=== PATIENT | female | born 1980 | race Caucasian/White ===

== ENCOUNTER 2018-07-03 11:12 | Inpatient (IN) | payer OTHER ==
[~2018-07-03] VITALS: Ht 160 cm; Wt 72.7 kg
[2018-07-03 11:30] VITALS: BP 141/103
[2018-07-03] MEDS ORDERED: PREN-3 PO (11:36)
[2018-07-03 12:02] LABS: MICROSCOPIC AUTO
[2018-07-03 12:06] LABS: BASOPHILS # (AUTO) 0.05 x10^3/uL (0-0.1); BASOPHILS % (AUTO) 0 % (0-1); EOSINOPHILS % (AUTO) 1 % (1-7); LYMPHOCYTES # (AUTO) 2.92 x10^3/uL (1-3.4); LYMPHOCYTES % (AUTO) 21 % (22-44); MD NO; MEAN CORPUSCULAR HGB CONC 35.1 g/dL (32.4-35.8); MEAN CORPUSCULAR VOLUME 91.1 fL (80-100); MEAN PLATELET VOLUME 8.5 fL (7.4-10.4); MONOCYTES # (AUTO) 0.83 x10^3/uL (0.2-0.8); MONOCYTES % (AUTO) 6 % (2-9); NEUTROPHILS # (AUTO) 10.15 x10^3/uL (1.8-6.8); NEUTROPHILS % (AUTO) 72 % (42-75); PLATELET COUNT 250 x10^3/uL (130-400); RED BLOOD COUNT 4.46 x10^6/uL (3.82-5.3); RED CELL DISTRIBUTION WIDTH 13.3 % (9.6-15.2)
[2018-07-03 12:12] LABS: CREATININE,URINE RANDOM 16.8 mg/dL
[2018-07-03 12:17] LABS: ALANINE AMINOTRANSFERASE 16 U/L (12-78); ALBUMIN 3.2 g/dL (3.4-5.0); ANION GAP 11 mmol/L (5-15); CALCIUM 8.8 mg/dL (8.5-10.1); CHLORIDE 109 mmol/L (98-107); CREATININE 0.73 mg/dL (0.55-1.02)
[2018-07-03 12:20] LABS: ALKALINE PHOSPHATASE 142 U/L (45-117); BILIRUBIN,TOTAL 0.3 mg/dL (0.2-1.0); TOTAL PROTEIN 7.2 g/dL (6.4-8.2)
[2018-07-03 12:23] LABS: BILIRUBIN, DIRECT < 0.1 mg/dL (0.1-0.2)
[2018-07-03] MEDS ORDERED: BETAMETHASONE 6 MG/ML, 5ML IM ONE (12:40)
[2018-07-03] MEDS: BETAMETHASONE 6 MG/ML, 5ML IM SCH (12:45)
[2018-07-04 06:31] LABS: MEAN CORPUSCULAR HEMOGLOBIN 31.3 pg (27.0-34.8); MEAN CORPUSCULAR HGB CONC 34.3 g/dL (32.4-35.8); MEAN CORPUSCULAR VOLUME 91.1 fL (80-100); MEAN PLATELET VOLUME 8.6 fL (7.4-10.4); PLATELET COUNT 246 x10^3/uL (130-400); RED BLOOD COUNT 4.25 x10^6/uL (3.82-5.3); RED CELL DISTRIBUTION WIDTH 13.5 % (9.6-15.2)
[2018-07-04 06:39] LABS: ALBUMIN 2.9 g/dL (3.4-5.0); ANION GAP 10 mmol/L (5-15); CALCIUM 9.2 mg/dL (8.5-10.1); CHLORIDE 110 mmol/L (98-107)
[2018-07-04 06:43] LABS: ALANINE AMINOTRANSFERASE 16 U/L (12-78); ALKALINE PHOSPHATASE 130 U/L (45-117); BILIRUBIN,TOTAL 0.1 mg/dL (0.2-1.0); TOTAL PROTEIN 6.4 g/dL (6.4-8.2)
[2018-07-04 06:44] LABS: BILIRUBIN, DIRECT < 0.1 mg/dL (0.1-0.2)
[2018-07-04 06:53] LABS: BASOPHILS # (AUTO) 0.14 x10^3/uL (0-0.1); BASOPHILS % (AUTO) 1 % (0-1); EOSINOPHILS % (AUTO) 0 % (1-7); LYMPHOCYTES # (AUTO) 2.31 x10^3/uL (1-3.4); LYMPHOCYTES % (AUTO) 12 % (22-44); MD SCAN; MONOCYTES # (AUTO) 0.86 x10^3/uL (0.2-0.8); MONOCYTES % (AUTO) 4 % (2-9); NEUTROPHILS # (AUTO) 16.35 x10^3/uL (1.8-6.8); NEUTROPHILS % (AUTO) 83 % (42-75)
[2018-07-04] MEDS: BETAMETHASONE 6 MG/ML, 5ML IM SCH (12:35)
[2018-07-04] MEDS ORDERED: OXYTOCIN 30U/ 0.9% NaCL 500ML 500 ML IV SCH ×2 (23:12)
[2018-07-04] MEDS ORDERED: CALCIUM CARBONATE 500 MG TAB.CHEW PO PRN (23:30)
[2018-07-04] MEDS ORDERED: ONDANSETRON 2MG/ML, 2ML IV PRN (23:30)
[2018-07-04] MEDS ORDERED: IBUPROFEN 600 MG TABLET PO PRN (23:30)
[2018-07-04] MEDS ORDERED: HYDROcodone/APAP 5/325 TABLET PO PRN (23:30)
[2018-07-04] MEDS ORDERED: MISOPROSTOL 200 MCG TABLET PR PRN (23:30)
[2018-07-04] MEDS ORDERED: ACETAMINOPHEN 325 MG TABLET PO PRN ×3 (23:30)
[2018-07-04] MEDS ORDERED: DOCUSATE 100 MG CAPSULE PO PRN (23:30)
[2018-07-04] MEDS ORDERED: BISACODYL 10 MG SUPP PR PRN (23:30)
[2018-07-05] MEDS ORDERED: PRENATAL VIT/IRON/FA 1 EACH TABLET PO SCH (09:00)
[2018-07-05 10:04] LABS: MEAN CORPUSCULAR HEMOGLOBIN 31.6 pg (27.0-34.8); MEAN CORPUSCULAR HGB CONC 34.3 g/dL (32.4-35.8); MEAN CORPUSCULAR VOLUME 92.3 fL (80-100); MEAN PLATELET VOLUME 8.7 fL (7.4-10.4); PLATELET COUNT 235 x10^3/uL (130-400); RED BLOOD COUNT 4.15 x10^6/uL (3.82-5.3); RED CELL DISTRIBUTION WIDTH 13.2 % (9.6-15.2)
[2018-07-05] MEDS: LACTATED RINGERS 1,000 ML IV SCH ×3 (10:08→14:42)
[2018-07-05 10:23] LABS: BASOPHILS # (AUTO) 0.05 x10^3/uL (0-0.1); BASOPHILS % (AUTO) 0 % (0-1); EOSINOPHILS # (AUTO) 0.01 x10^3/uL (0-0.4); EOSINOPHILS % (AUTO) 0 % (1-7); LYMPHOCYTES # (AUTO) 2.87 x10^3/uL (1-3.4); LYMPHOCYTES % (AUTO) 14 % (22-44); MD SCAN; MONOCYTES # (AUTO) 1.11 x10^3/uL (0.2-0.8); MONOCYTES % (AUTO) 5 % (2-9); NEUTROPHILS # (AUTO) 17.23 x10^3/uL (1.8-6.8); NEUTROPHILS % (AUTO) 81 % (42-75)
[2018-07-05] MEDS ORDERED: NEWBORN KIT ONE ×2 (11:32→14:19)
[2018-07-05] MEDS ORDERED: OXYTOCIN 30U/ 0.9% NaCL 500ML 500 ML ONE (11:32)
[2018-07-05] MEDS ORDERED: SODIUM CITRATE/CITRIC ACID 30 ML UDC ONE (11:32)
[2018-07-05] MEDS ORDERED: METOCLOPRAMIDE 5 MG/ML, 2ML ONE (11:33)
[2018-07-05] MEDS ORDERED: METOCLOPRAMIDE 5 MG/ML, 2ML IVPush ONE (12:00)
[2018-07-05] MEDS ORDERED: SODIUM CITRATE/CITRIC ACID 30 ML UDC PO ONE (12:00)
[2018-07-05] MEDS ORDERED: OXYTOCIN 10 UNITS/ML, 1ML ONE (13:17)
[2018-07-05] MEDS ORDERED: FENTANYL PF 100 MCG/2ML ONE (13:17)
[2018-07-05] MEDS ORDERED: ONDANSETRON 2MG/ML, 2ML ONE (13:17)
[2018-07-05] MEDS ORDERED: CEFAZOLIN 1,000 MG ONE (13:17)
[2018-07-05] MEDS ORDERED: HYDROmorphone 2 MG/ML, 1ML ONE (13:18)
[2018-07-05] MEDS ORDERED: SODIUM CHLORIDE 0.9% PF 10ML ONE ×2 (13:19)
[2018-07-05] MEDS ORDERED: BUPIVACAINE/PF 0.5% ONE (13:31)
[2018-07-05] MEDS ORDERED: LACTATED RINGERS 1,000 ML IV SCH (14:42)
[2018-07-05] MEDS ORDERED: OXYcodone IR 5MG TABLET PO PRN (15:00)
[2018-07-05] MEDS ORDERED: morphine SULFATE 10 MG/ML, 1ML IVPush PRN ×2 (15:00)
[2018-07-05] MEDS ORDERED: MISOPROSTOL 200 MCG TABLET PR PRN (15:00)
[2018-07-05] MEDS ORDERED: CALCIUM CARBONATE 500 MG TAB.CHEW PO PRN (15:00)
[2018-07-05] MEDS ORDERED: SIMETHICONE 80 MG CHEW TAB PO PRN (15:00)
[2018-07-05] MEDS ORDERED: BISACODYL 10 MG SUPP PR PRN (15:00)
[2018-07-05] MEDS ORDERED: IBUPROFEN 600 MG TABLET PO SCH (15:00)
[2018-07-05] MEDS ORDERED: ONDANSETRON 2MG/ML, 2ML IV PRN (15:00)
[2018-07-05] MEDS ORDERED: DIPHENHYDRAMINE 50 MG/ML, 1ML ONE (15:56)
[2018-07-05] MEDS ORDERED: KETOROLAC 30 MG/1 ML ONE (15:56)
[2018-07-05] MEDS ORDERED: DIPHENHYDRAMINE 50 MG/ML, 1ML IVPush ONE (16:00)
[2018-07-05] MEDS: KETOROLAC 30 MG/1 ML IV SCH ×2 (16:00→22:24)
[2018-07-05] MEDS ORDERED: HYDROcodone/APAP 5/325 TABLET ONE (16:20)
[2018-07-05] MEDS: OXYTOCIN 30U/ 0.9% NaCL 500ML 500 ML IV SCH (17:32)
[2018-07-05] MEDS: ACETAMINOPHEN 325 MG TABLET PO SCH ×2 (17:33→22:25)
[2018-07-05 17:44] VITALS: BP 116/73
[2018-07-05 19:13] VITALS: BP 132/73
[2018-07-05 21:35] LABS: MEAN CORPUSCULAR HEMOGLOBIN 31.5 pg (27.0-34.8); MEAN CORPUSCULAR HGB CONC 34.2 g/dL (32.4-35.8); MEAN CORPUSCULAR VOLUME 92.1 fL (80-100); MEAN PLATELET VOLUME 8.4 fL (7.4-10.4); PLATELET COUNT 202 x10^3/uL (130-400); RED CELL DISTRIBUTION WIDTH 13.4 % (9.6-15.2)
[2018-07-05 21:51] LABS: BASOPHILS # (AUTO) 0.11 x10^3/uL (0-0.1); BASOPHILS % (AUTO) 1 % (0-1); EOSINOPHILS # (AUTO) 0.07 x10^3/uL (0-0.4); EOSINOPHILS % (AUTO) 0 % (1-7); LYMPHOCYTES # (AUTO) 3.27 x10^3/uL (1-3.4); LYMPHOCYTES % (AUTO) 16 % (22-44); MD SCAN; MONOCYTES # (AUTO) 1.07 x10^3/uL (0.2-0.8); MONOCYTES % (AUTO) 5 % (2-9); NEUTROPHILS # (AUTO) 16.35 x10^3/uL (1.8-6.8); NEUTROPHILS % (AUTO) 78 % (42-75)
[2018-07-05] MEDS: DOCUSATE 100 MG CAPSULE PO PRN (22:25)
[2018-07-05 23:07] VITALS: BP 124/73
[2018-07-06] MEDS: LACTATED RINGERS 1,000 ML IV SCH ×3 (00:42→20:42)
[2018-07-06] MEDS: OXYTOCIN 30U/ 0.9% NaCL 500ML 500 ML IV SCH ×3 (00:42→20:42)
[2018-07-06] MEDS: OXYcodone IR 5MG TABLET PO PRN ×3 (02:59→13:28)
[2018-07-06 04:15] VITALS: BP 125/79
[2018-07-06] MEDS: KETOROLAC 30 MG/1 ML IV SCH ×2 (04:15→10:07)
[2018-07-06] MEDS: ACETAMINOPHEN 325 MG TABLET PO SCH ×4 (04:15→21:38)
[2018-07-06 08:02] VITALS: BP 132/85
[2018-07-06] MEDS: DOCUSATE 100 MG CAPSULE PO PRN ×2 (08:04→21:38)
[2018-07-06] MEDS: PRENATAL VIT/IRON/FA 1 EACH TABLET PO SCH (10:00)
[2018-07-06 12:38] VITALS: BP 129/84
[2018-07-06] MEDS: IBUPROFEN 600 MG TABLET PO SCH ×2 (16:13→21:38)
[2018-07-06 16:14] VITALS: BP 149/95
[2018-07-06 17:04] VITALS: BP 137/73
[2018-07-06 19:20] VITALS: BP 130/89
[2018-07-07] MEDS: IBUPROFEN 600 MG TABLET PO SCH ×4 (04:08→22:36)
[2018-07-07] MEDS: ACETAMINOPHEN 325 MG TABLET PO SCH ×4 (04:10→22:36)
[2018-07-07] MEDS: LACTATED RINGERS 1,000 ML IV SCH ×2 (06:42→16:42)
[2018-07-07] MEDS: OXYTOCIN 30U/ 0.9% NaCL 500ML 500 ML IV SCH ×2 (06:42→16:42)
[2018-07-07 06:55] VITALS: BP 153/95
[2018-07-07] MEDS: PRENATAL VIT/IRON/FA 1 EACH TABLET PO SCH (11:08)
[2018-07-07 12:05] VITALS: BP 132/85
[2018-07-07 20:00] VITALS: BP 133/84
[2018-07-08] MEDS: OXYTOCIN 30U/ 0.9% NaCL 500ML 500 ML IV SCH (02:42)
[2018-07-08] MEDS: LACTATED RINGERS 1,000 ML IV SCH (02:42)
[2018-07-08] MEDS: ACETAMINOPHEN 325 MG TABLET PO SCH ×2 (04:48→11:06)
[2018-07-08] MEDS: IBUPROFEN 600 MG TABLET PO SCH ×2 (04:48→11:06)
[2018-07-08 07:45] VITALS: BP 151/92
[2018-07-08] MEDS: PRENATAL VIT/IRON/FA 1 EACH TABLET PO SCH (09:00)
[2018-07-08] MEDS ORDERED: IBUP-1222 PO (10:03)
[2018-07-08] MEDS ORDERED: OXYC5TAB3 PO (10:05)
[2018-07-08] MEDS: DOCUSATE 100 MG CAPSULE PO PRN (11:06)
== END 2018-07-08 15:05 | disposition home or self-care (01) | DRG 765 ==
LOC: LDOP 11:12 → LDIP 12:31 → 2NW 07-05 16:56
PROVIDERS: ADMIT Obstetrics & Gynecology; ATTEND Obstetrics & Gynecology
PROC: 10D00Z1 Extraction of Products of Conception, Low, Open Approach (ICD-10-PCS; principal; 2018-07-05)
DX: O36.5930 Maternal care for other known or suspected poor fetal growth, third trimester, not applicable or unspecified (principal); O41.03X0 Oligohydramnios, third trimester, not applicable or unspecified; Z37.0 Single live birth; O99.334 Smoking (tobacco) complicating childbirth; O13.4 Gestational [pregnancy-induced] hypertension without significant proteinuria, complicating childbirth; O32.1XX0 Maternal care for breech presentation, not applicable or unspecified; F17.210 Nicotine dependence, cigarettes, uncomplicated; O34.03 Maternal care for unspecified congenital malformation of uterus, third trimester; Z3A.36 36 weeks gestation of pregnancy; Q51.810 Arcuate uterus
CPT/HCPCS: 36415; 76805; 80053; 81001; 81050; 82248; 82570; 82803; 84156; 84550; 85025; 86850; 86900; 88307; J0690; J0702; J1170; J1885; J2405; J3010; J3490; J1200; J2270; J2590; J2765; J7120